=== PATIENT | female | born 1990 | race Hispanic/Latino ===

== ENCOUNTER 2018-04-15 11:21 | Emergency (ER) | payer OTHER, SELFPAY ==
[2018-04-15 11:26] VITALS: BP 137/90; PULSE 75; RESP 17; TEMP 36.7; O2SAT 100
--- NOTE | 2018-04-15 11:29 | DI.RAD.S_ITS ---
PROCEDURE: XR FOOT RT MIN 3V INDICATIONS: right foot pain TECHNIQUE: 3 views of the foot were acquired. COMPARISON: None. FINDINGS: Bones: Minimally displaced oblique fracture through the fifth proximal phalange. Soft tissues: No tibiotalar joint effusion. Achilles tendon appears normal. IMPRESSION: Fifth proximal phalangeal fracture. Dictated by: Michelle Damico MD, PhD on 04/15/2018 at 11:51 Approved by: Michelle Damico MD, PhD on 04/15/2018 at 11:52
--- NOTE | 2018-04-15 13:01 | ED.LOWEXIN ---
HPI - Extremity Injury (Lower) <TROY White - Last Filed: 04/15/18 21:47> General Chief Complaint: Extremity Injury, Lower Stated Complaint: FELL,INJURED TOES Time Seen by Provider: 04/15/18 13:00 Source: patient Mode of arrival: ambulatory Limitations: no limitations History of Present Illness HPI Narrative: Healthy 27-year-old female that is a nonsmoker here for complaint of pain into her right little toe over the past couple of days. She states that she accidentally jammed her right little toe on a baby gate 2 days ago. She reports some swelling and bruising to the area. She is ambulatory into the emergency room. She denies any other concerns or complaints. Increased pain with motion of the right toes MD complaint: foot injury Related Data Allergies Allergy/AdvReac Type Severity Reaction Status Date / Time codeine Allergy Hives Verified 04/15/18 11:26 Review of Systems <TROY White - Last Filed: 04/15/18 21:47> Constitutional Denies chills, Denies fever(s), Denies lethargy and Denies weakness Eyes Denies change in vision, Denies eye discharge, Denies irritation and Denies loss of vision ENT Ears, Nose, Mouth, and Throat: Denies change in voice, Denies neck pain and Denies sore throat Cardiovascular Denies chest pain, Denies irregular heart rhythm, Denies lightheadedness, Denies palpitations, Denies dyspnea, Denies dyspnea on exertion and Denies orthopnea Respiratory Denies cough, Denies dyspnea, Denies dyspnea on exertion and Denies wheezing Gastrointestinal Gastrointestinal: Denies abdominal pain, Denies change in bowel habits, Denies diarrhea, Denies nausea and Denies vomiting Genitourinary Denies hematuria, Denies flank pain, Denies urinary incontinence and Denies urinary urgency Musculoskeletal Denies neck pain Comments: Right little toe pain Integumentary/Breasts Denies pruritus, Denies erythema, Denies rash and Denies wounds Neurologic Denies confusion, Denies loss of vision and Denies weakness Psychiatric Denies anxiety, Denies confusion, Denies depression, Denies homicidal ideation and Denies suicidal ideation Endocrine Denies palpitations Hematologic/Lymphatic Denies easy bruising Allergic/Immunologic Denies wheezing Exam <TROY White - Last Filed: 04/15/18 21:47> Initial Vital Signs Initial Vital Signs: Vital Signs Temperature 98.0 F 04/15/18 11:26 Pulse Rate 75 04/15/18 11:26 Respiratory Rate 17 04/15/18 11:26 Blood Pressure 137/90 04/15/18 11:26 Pulse Oximetry 100 04/15/18 11:26 Const General: cooperative and well developed Nutritional Appearance: well nourished Orientation: alert, awake, oriented x3 and not confused HENNJ Mouth: oral mucosae normal and moist mucous membranes Eyes Conjunctivae: conjunctivae normal Sclera: sclerae normal Pupils: PERRL EOM: EOM intact bilaterally Resp Effort & Inspection: normal respiratory effort, able to speak in complete sentences, no respiratory distress and no use of accessory muscles Auscultation: clear to auscultation bilaterally, no rales, no rhonchi and no wheezes Cardio Rate: regular rate Rhythm: regular rhythm Heart Sounds: no click, no gallops, no murmurs and no rubs Pulses: normal peripheral pulses Skin General: no rashes or lesions noted, No jaundice and No petechiae Neuro General: alert, oriented x3, gait normal and no focal motor deficits Speech: speech normal Extrem Other: Slight swelling to the right little toe. Positive ecchymosis. No open lesions. Distal sensation is intact. Distal cap refill less than 2 sec. Positive range of motion <Mallorie Hall DO - Last Filed: 04/16/18 08:30> Initial Vital Signs Initial Vital Signs: Vital Signs Temperature 98.0 F 04/15/18 11:26 Pulse Rate 75 04/15/18 11:26 Respiratory Rate 17 04/15/18 11:26 Blood Pressure 137/90 04/15/18 11:26 Pulse Oximetry 100 04/15/18 11:26 Course <TROY White - Last Filed: 04/15/18 21:47> Orders Ordered: ED Orders 04/15/18 11:29 XR foot RT min 3V Stat Vital Signs - 8 hr 04/15/18 11:26 Temperature 98.0 F Pulse Rate 75 Respiratory Rate 17 Blood Pressure 137/90 Pulse Oximetry 100 <Mallorie Hall DO - Last Filed: 04/16/18 08:30> Orders Ordered: ED Orders 04/15/18 11:29 XR foot RT min 3V Stat Vital Signs - 8 hr 04/15/18 11:26 Temperature 98.0 F Pulse Rate 75 Respiratory Rate 17 Blood Pressure 137/90 Pulse Oximetry 100 MDM - Extremity Injury (Lower) <TROY White - Last Filed: 04/15/18 21:47> Imaging Data foot: Radiologist's impression: [address] [address] XRay Report Signed Patient: JAYSON BOLAND MR#: [id number] : 1990 Acct:[id number] Age/Sex: 27 / F Date of Service: 04/15/18 Loc: ED Accession Number: [id number] Procedure: XR foot RT min 3V Ordering Provider: Mallorie Hall D.O. PROCEDURE: XR FOOT RT MIN 3V INDICATIONS: right foot pain TECHNIQUE: 3 views of the foot were acquired. COMPARISON: None. FINDINGS: Bones: Minimally displaced oblique fracture through the fifth proximal phalange. Soft tissues: No tibiotalar joint effusion. Achilles tendon appears normal. IMPRESSION: Fifth proximal phalangeal fracture. Dictated by: Michelle Damico MD, PhD on 04/15/2018 at 11:51 Approved by: Michelle Dmaico MD, PhD on 04/15/2018 at 11:52 [facility] Narrative Medical decision making narrative: X-ray of the right foot shows minimally displaced oblique fracture to the 5th proximal phalange. Femi tape and postop shoe for comfort and support. Ice and elevation help with any swelling. [id number] acetaminophen or ibuprofen as needed for discomfort. Follow up with primary care provider next week for re-evaluation. For any worsening symptoms return to the emergency room. Discharge Plan Departure Patient Disposition: Home Clinical Impression: Fracture of right toe Discharge Date/Time: 04/15/18 13:42 Interventions: ED Discharge Assessment Last Done: 04/15/18 13:42 Instructions: DI for Toe Fracture Activity Restrictions/Additional Instructions: X-ray of the right foot shows fracture to the proximal little toe. Femi tape toe and postop shoe for comfort and support as instructed. Ice and elevation to help with any swelling. [id number] acetaminophen or ibuprofen as needed for discomfort. Follow up with primary care provider next week for re-evaluation. For any worsening symptoms return to the emergency room. Referrals: [facility] [Provider Group] <Mallorie Hall DO - Last Filed: 04/16/18 08:30> Cosign ED Attending Cosignature Attestation: I was immediately available in the department for consultation. This documentation has been reviewed and I agree with assessment and plan. Supervised by Mallorie Hall DO
--- NOTE | 2018-04-15 13:20 | ED_ITS ---
HPI - Extremity Injury (Lower) <TROY White - Last Filed: 04/15/18 21:47> General Chief Complaint: Extremity Injury, Lower Stated Complaint: FELL,INJURED TOES Time Seen by Provider: 04/15/18 13:00 Source: patient Mode of arrival: ambulatory Limitations: no limitations History of Present Illness HPI Narrative: Healthy 27-year-old female that is a nonsmoker here for complaint of pain into her right little toe over the past couple of days. She states that she accidentally jammed her right little toe on a baby gate 2 days ago. She reports some swelling and bruising to the area. She is ambulatory into the emergency room. She denies any other concerns or complaints. Increased pain with motion of the right toes MD complaint: foot injury Related Data Allergies Allergy/AdvReac Type Severity Reaction Status Date / Time codeine Allergy Hives Verified 04/15/18 11:26 Review of Systems <TROY White - Last Filed: 04/15/18 21:47> Constitutional Denies chills, Denies fever(s), Denies lethargy and Denies weakness Eyes Denies change in vision, Denies eye discharge, Denies irritation and Denies loss of vision ENT Ears, Nose, Mouth, and Throat: Denies change in voice, Denies neck pain and Denies sore throat Cardiovascular Denies chest pain, Denies irregular heart rhythm, Denies lightheadedness, Denies palpitations, Denies dyspnea, Denies dyspnea on exertion and Denies orthopnea Respiratory Denies cough, Denies dyspnea, Denies dyspnea on exertion and Denies wheezing Gastrointestinal Gastrointestinal: Denies abdominal pain, Denies change in bowel habits, Denies diarrhea, Denies nausea and Denies vomiting Genitourinary Denies hematuria, Denies flank pain, Denies urinary incontinence and Denies urinary urgency Musculoskeletal Denies neck pain Comments: Right little toe pain Integumentary/Breasts Denies pruritus, Denies erythema, Denies rash and Denies wounds Neurologic Denies confusion, Denies loss of vision and Denies weakness Psychiatric Denies anxiety, Denies confusion, Denies depression, Denies homicidal ideation and Denies suicidal ideation Endocrine Denies palpitations Hematologic/Lymphatic Denies easy bruising Allergic/Immunologic Denies wheezing Exam <TROY White - Last Filed: 04/15/18 21:47> Initial Vital Signs Initial Vital Signs: Vital Signs Temperature 98.0 F 04/15/18 11:26 Pulse Rate 75 04/15/18 11:26 Respiratory Rate 17 04/15/18 11:26 Blood Pressure 137/90 04/15/18 11:26 Pulse Oximetry 100 04/15/18 11:26 Const General: cooperative and well developed Nutritional Appearance: well nourished Orientation: alert, awake, oriented x3 and not confused HENNY Mouth: oral mucosae normal and moist mucous membranes Eyes Conjunctivae: conjunctivae normal Sclera: sclerae normal Pupils: PERRL EOM: EOM intact bilaterally Resp Effort & Inspection: normal respiratory effort, able to speak in complete sentences, no respiratory distress and no use of accessory muscles Auscultation: clear to auscultation bilaterally, no rales, no rhonchi and no wheezes Cardio Rate: regular rate Rhythm: regular rhythm Heart Sounds: no click, no gallops, no murmurs and no rubs Pulses: normal peripheral pulses Skin General: no rashes or lesions noted, No jaundice and No petechiae Neuro General: alert, oriented x3, gait normal and no focal motor deficits Speech: speech normal Extrem Other: Slight swelling to the right little toe. Positive ecchymosis. No open lesions. Distal sensation is intact. Distal cap refill less than 2 sec. Positive range of motion <Mallorie Hall DO - Last Filed: 04/16/18 08:30> Initial Vital Signs Initial Vital Signs: Vital Signs Temperature 98.0 F 04/15/18 11:26 Pulse Rate 75 04/15/18 11:26 Respiratory Rate 17 04/15/18 11:26 Blood Pressure 137/90 04/15/18 11:26 Pulse Oximetry 100 04/15/18 11:26 Course <TROY White - Last Filed: 04/15/18 21:47> Orders Ordered: ED Orders 04/15/18 11:29 XR foot RT min 3V Stat Vital Signs - 8 hr 04/15/18 11:26 Temperature 98.0 F Pulse Rate 75 Respiratory Rate 17 Blood Pressure 137/90 Pulse Oximetry 100 <Mallorie Hall DO - Last Filed: 04/16/18 08:30> Orders Ordered: ED Orders 04/15/18 11:29 XR foot RT min 3V Stat Vital Signs - 8 hr 04/15/18 11:26 Temperature 98.0 F Pulse Rate 75 Respiratory Rate 17 Blood Pressure 137/90 Pulse Oximetry 100 MDM - Extremity Injury (Lower) <TROY White - Last Filed: 04/15/18 21:47> Imaging Data foot: Radiologist's impression: [address] [address] XRay Report Signed Patient: JAYSON BOLAND MR#: [id number] : 1990 Acct:[id number] Age/Sex: 27 / F Date of Service: 04/15/18 Loc: ED Accession Number: [id number] Procedure: XR foot RT min 3V Ordering Provider: Mallorie Hall D.O. PROCEDURE: XR FOOT RT MIN 3V INDICATIONS: right foot pain TECHNIQUE: 3 views of the foot were acquired. COMPARISON: None. FINDINGS: Bones: Minimally displaced oblique fracture through the fifth proximal phalange. Soft tissues: No tibiotalar joint effusion. Achilles tendon appears normal. IMPRESSION: Fifth proximal phalangeal fracture. Dictated by: Michelle Damico MD, PhD on 04/15/2018 at 11:51 Approved by: Michelle Damico MD, PhD on 04/15/2018 at 11:52 [facility] Narrative Medical decision making narrative: X-ray of the right foot shows minimally displaced oblique fracture to the 5th proximal phalange. Femi tape and postop shoe for comfort and support. Ice and elevation help with any swelling. Over- the-counter acetaminophen or ibuprofen as needed for discomfort. Follow up with primary care provider next week for re-evaluation. For any worsening symptoms return to the emergency room. Discharge Plan Departure Patient Disposition: Home Clinical Impression: Fracture of right toe Discharge Date/Time: 04/15/18 13:42 Interventions: ED Discharge Assessment Last Done: 04/15/18 13:42 Instructions: DI for Toe Fracture Activity Restrictions/Additional Instructions: X-ray of the right foot shows fracture to the proximal little toe. Femi tape toe and postop shoe for comfort and support as instructed. Ice and elevation to help with any swelling. Pqdl-[id number]-[id number] acetaminophen or ibuprofen as needed for discomfort. Follow up with primary care provider next week for re- evaluation. For any worsening symptoms return to the emergency room. Referrals: [facility] [Provider Group] <Mallorie Hall DO - Last Filed: 04/16/18 08:30> Cosign ED Attending Cosignature Attestation: I was immediately available in the department for consultation. This documentation has been reviewed and I agree with assessment and plan. Supervised by Mallorie Hall DO
== END 2018-04-15 13:42 | disposition home or self-care (01) ==
PROVIDERS: Emergency Provider Nurse Practitioner Family
DX: S92.511A Displaced fracture of proximal phalanx of right lesser toe(s), initial encounter for closed fracture (principal); W22.8XXA Striking against or struck by other objects, initial encounter
CPT/HCPCS: 29550; 73630; 99282; 99283

== ENCOUNTER → 2019-05-10 15:33 | Outpatient (CLI) | payer OTHER, SELFPAY ==
[2019-05-11 15:06] LABS: Strep Grp B PCR NEG for Grp B Strep
== END ==
PROVIDERS: Visit Provider Family Medicine
DX: Z34.83 Encounter for supervision of other normal pregnancy, third trimester (principal); Z3A.36 36 weeks gestation of pregnancy
CPT/HCPCS: 87653

== ENCOUNTER 2019-06-11 12:04 | Inpatient (IN) | payer OTHER, SELFPAY ==
--- NOTE | 2019-06-11 13:24 | P.HPOB_ITS ---
OB HPI Date/Time Date of admission: 06/11/19 Date Patient Seen: 06/11/19 Time Patient Seen: 13:40 History of Present Condition Chief complaint: WATER BROKE : 2 Para: 1 Estimated Date of Delivery: 06/07/19 Estimated Gestational Age (weeks): 40 Narrative: Kari Méndez is a 28 year old 001 at 40 weeks 4 days, presenting reporting rupture of membranes at approximately 2:00 a.m.. The patient reports that they were briefly slightly bloody and then clear, with ongoing copious leakage. She denies ongoing vaginal bleeding, reports good movement, reports no contractions, and denies any other complaints obstetrical or otherwise. The patient has a history of preeclampsia with severe features requiring treatment with magnesium, but has not been on a baby aspirin in this . The patient reports that she has had an otherwise uncomplicated , with no lab abnormalities or ultrasound abnormalities. The patient reports that she is proven to 8 lb, and that her prior was uncomplicated beyond the preeclampsia. She denies any other significant medical or surgical history, family history, or social history. Indications Indication for induction OB: other (PROM) History of Present care: good care and initiated at week # (incomplete records, but record of 1st tri US) Dating criteria: based on 1st trimester US only Ultrasounds: normal 1st trimester US and normal mid trimester US Obstetrical complications: none Medical complications: none Preadmission Labs Blood type: O (+) positive -: Antibody screen: negative, Cystic fibrosis screen: negative, HBsAG: negative, HIV: negative and RPR/VDLR: negative -: Chlamydia screen: not detected and Gonorrhea screen: not detected -: Rubella: immune Integrated screen: Negative Urine: Negative Prior (ies) History: G1: 09/2016, , 7#15 oz, c/b PEC Evaluation Evaluation Baseline heart rate: 135 Variability: Moderate (11-25) monitor accelerations: Present monitor decelerations: Absent Contraction Frequency (minutes): 0 Uterine Contraction Intensity: Mild Category of Tracing: I Comments: SVE deferred due to prolonged rupture, patient comfort, rare ctx on admission. Patient 4cm/-2 in office 4 days ago. [facility] Medical History Closed fracture of phalanx of right fifth toe (Acute ~2019) Pre-eclampsia affecting , antepartum (Acute) Surgical History H/O breast augmentation (Acute ~2015) Family History Mother Hypertension Hypothyroidism Anxiety Grandfather History of open heart surgery Grandmother Hypertension Father Diabetes mellitus Hypertension Grandfather Alzheimer's dementia Grandmother COPD (chronic obstructive pulmonary disease) Brother Hypertension Diabetes mellitus Brother Hypertension Social History marital status: Smoking Status: Never smoker Meds Home Medications and Allergies Home Medications Medication Instructions Recorded Confirmed Type prenat.vits,rochelle,zgs-iioj-emfcd 1 tab PO DAILY 04/19/19 05/10/19 History hydrocodone 5 mg-acetaminophen 325 1 tab PO Q8H PRN #5 tab 05/24/19 05/24/19 Rx mg tablet Allergies Allergy/AdvReac Type Severity Reaction Status Date / Time codeine Allergy Hives Verified 05/10/19 14:31 Review of Systems Constitutional Constitutional: Reports system reviewed and no additional complaints, except as documented Cardiovascular Cardiovascular: Reports system reviewed; no additional complaints, except as documented Respiratory Respiratory: Reports system reviewed and no additional complaints, except as doc umented Gastrointestinal Gastrointestinal: Reports system reviewed and no additional complaints, except as documented Genitourinary Genitourinary: Reports as per HPI Musculoskeletal Musculoskeletal: Reports system reviewed; no additional complaints, except as documented Neurologic Neurologic: Reports system reviewed and no additional complaints, except as documented Exam Vital Signs (past 8 hours): 120/85, HR 91 Const General: cooperative, healthy appearing and comfortable Resp Effort & Inspection: normal respiratory effort Auscultation: clear to auscultation bilaterally Cardio Rate: regular rate Rhythm: regular rhythm GI Palpation: soft and No tender External Female Exam: external appearance normal (gross leakage clear fluid) Extrem General: normal to inspection Objective Labs Result Diagrams: 06/11/19 13:10 Assessment and Plan Assessment and Plan Assessment and Plan narrative: This patient is a @40+4 a/w PROM almost 12 hours ago. Patient is GBS negative and antibiotics will be deferred until 24 hrs ruptured, and pitocin will be initiated as soon as is feasible to expedite delivery. - CBC, T&S - cEFM, toco - pitocin per protocol - close monitoring VS due to hx PEC Time Spent with Patient Total time spent with greater than 50% in coordination of care (as documented) at patient's floor/unit and/or counseling patient:: 25 - 35 minutes
[2019-06-11 13:36] LABS: Add Manual Diff / Slide Review NO; Basophils Absolute Auto 0 /uL (0-100); Basophils Percent Auto 0.2 % (0-2); Eosinophils Absolute Auto 0 /uL (0-450); Eosinophils Percent Auto 0.3 % (2-4); Hematocrit 37.3 % (36-46); Hemoglobin 13.2 g/dL (12.0-16.0); Lymphocytes Absolute Auto 1400 /uL (1100-4500); Lymphocytes Percent Auto 12.3 % (25-40); Mean Corpuscular HGB Conc 35.5 % (30-36); Mean Corpuscular Hemoglobin 34.3 PG (26-34); Mean Corpuscular Volume 96.7 fL (80-100); Monocytes Absolute Auto 700 /uL (0-900); Monocytes Percent Auto 6.3 % (3-14); Neutrophils Absolute Auto 9500 /uL (1500-7000); Neutrophils Percent Auto 80.9 % (50-75); Platelet Count 157 X10^3/uL (150-400); Red Blood Cell Count 3.86 X10^6/uL (4.0-5.2); Red Cell Distribution Width 13.1 % (11.6-14.8); White Blood Cell Count 11.7 X10^3/uL (4.5-11.0)
[2019-06-11] MEDS: LACTATED RINGERS 1,000 ML 100 ML IV (15:00)
[2019-06-11] MEDS: OXYTOCIN PREMIX 30 UNIT/500 ML PLAST..BAG IV (15:14)
--- NOTE | 2019-06-11 17:06 | PM.OBPNLAB ---
Date/Time Date Patient Seen: 06/11/19 Time Patient Seen: 17:07 Pain Control Pain control: tolerating well Pelvic Exam Dilation (cm): 5 Effacement (%): 100 station: -2 Amniotic membrane status: Ruptured (Forebag ruptured, moderate clear fluid) Contractions Contractions on admission: regular Pitocin rate (mU/min): 6 Contraction frequency (min): 3 Contraction duration (min): 1 Contraction pattern: Regular Contraction intensity: Moderate Status status: Category l Heart Rate Baseline: 125 Monitor Accelerations: Present Monitor Decelerations: Absent Monitor Variability: Moderate Assessment and Plan Assessment: induction ongoing Plan: continuous present management Comments: Continue pitocin per protocol
[2019-06-11] MEDS: METHYLERGONOVINE 0.2 MG/ML VIAL IM (18:35)
--- NOTE | 2019-06-11 18:45 | PM.OBPRVD ---
 Events: Prolonged Rupture of Membrane Labor & Delivery Delivery date: 06/11/19 Delivery augmentation: pitocin Delivery monitor: external FHT and external uterine Route of delivery: L&D Laceration Description: Perineal - 1st Degree Estimated blood loss (mL): 350 Anesthesia type: None Narrative: This patient is a 28-year-old G2 now P2 day 0 status post an uncomplicated vaginal delivery. The patient presented 12 hours after rupture of membranes for clear fluid, GBS negative status. At that point, she was 4.5, 80%, -2. Pitocin was started, and a forebag ruptured 2 hours later at 5 cm, 80%, -1. The patient ambulated, and 1 hour after that exam, delivered a healthy female infant from the DIAMOND presentation, Apgars 8 and 9, weight 8#3. A first-degree spontaneously hemostatic perineal laceration was noted that did not require suturing. Patient had an atonic lower uterine segment and cervix, and 1 dose of Methergine was administered after normotension was assured. There were no other intrapartum complications, with a category 1 tracing throughout. There were no immediate complications. [place] Baby Ita: gender: Female Presentation: vertex position: Left Occiput Transverse (DIAMOND) Placenta delivery description: Spontaneous cord vessel description: 3 Vessels score (1 min): 8 score (5 min): 9 Narrative: Baby cried spontaneously immediately after delivery, was placed skin to skin with mom. Cord clamped and cut after cord pulsation had stopped. Plan for aftercare: Routine care, with close monitoring of blood pressures.
[2019-06-11] MEDS: IBUPROFEN 600 MG TABLET PO (21:23)
[2019-06-11] MEDS: ACETAMINOPHEN 325 MG TABLET 650 MG PO (21:24)
[2019-06-11 21:57] VITALS: BP 120/85
[2019-06-12 08:26] VITALS: TEMP 36.8
[2019-06-12] MEDS: IBUPROFEN 600 MG TABLET PO ×2 (08:26→18:00)
[2019-06-12] MEDS: PRENATAL VIT,CALC/IRON/FOLIC 1 TABLET 1 TAB PO (08:28)
--- NOTE | 2019-06-12 10:08 | P.PNOB_ITS ---
Subjective - OB Subjective Patient comments: no complaints and pain well controlled [place] baby status: doing well [place] feeding status: exclusively breast feeding Narrative: This patient is a 28-year-old para 2 day 1 after an u ncomplicated spontaneous vaginal delivery. The patient presented having broken her water 12 hours previously, was started on Pitocin, and progressed on her own. She progressed rapidly from 5 cm to fully dilated, and shortly thereafter delivered a healthy baby girl, weight 8 lb 3 oz, with no intrapartum complications. A small first-degree perineal laceration was spontaneously hemostatic and did not require sutures, and her recovery has since been uncomplicated. Today, she reports feeling well, with her most bothersome complaint being ongoing musculoskeletal back pain that started several weeks ago. The patient reports that this is significantly worsened by sleeping in hospital bed, the patient strongly desires discharge this evening. Patient has a history of preeclampsia in her prior delivery, and we discussed that if she is discharged this evening, she should return with any signs or symptoms of preeclampsia, which were reviewed. I also discussed with the patient that she should follow up on Thursday in clinic for a blood pressure check. The patient vocalized understanding. Patient otherwise is doing well, with no bowel or bladder complaints, mild lochia, minimal cramping, and no other symptoms this morning. Date Patient Seen: 06/12/19 Time Patient Seen: 10:11 Exam Vital Signs (past 8 hours): - Blood pressure this a.m. 129/73, no tachycardia 06/12/19 08:26 Temperature 98.2 F Const General: cooperative, healthy appearing and comfortable Resp Effort & Inspection: normal respiratory effort Auscultation: clear to auscultation bilaterally Cardio Rate: regular rate Rhythm: regular rhythm GI Palpation: soft and No tender Other: Fundus firm, well below U Skin General: no rashes or lesions noted Objective Labs Result Diagrams: 06/11/19 13:10 Labs: Laboratory Results - last 24 hr 06/11/19 06/11/19 13:10 13:10 WBC 11.7 H RBC 3.86 L Hgb 13.2 Hct 37.3 MCV 96.7 MCH 34.3 H MCHC 35.5 RDW 13.1 Plt Count 157 Neut % (Auto) 80.9 H Lymph % (Auto) 12.3 L [facility] % (Auto) 6.3 Eos % (Auto) 0.3 L Baso % (Auto) 0.2 Neut # (Auto) 9500 H Lymph # (Auto) 1400 [facility] # (Auto) 700 Eos # (Auto) 0 Baso # (Auto) 0 Blood Type O Positive Antibody Screen Negative Assessment & Plan Plan day: 1 plan OB: routine care Comments: This patient is recovering well, meeting goals with no complaints except her ongoing back pain. The patient strongly desires discharge, and we discussed precautions for preeclampsia and a blood pressure check in clinic. The patient vocalized understanding, and vocalized understanding of the risk of preeclampsia that might otherwise be detected overnight and tomorrow morning. All questions were answered, and precautions were discussed at length. Patient was encouraged to call or come in with any concerns. Time Spent With Patient Time: Total time spent is greater than 50% in coordination of care (as documented) at patient's floor/unit and/or counseling patient: Time with patient: 15-24 minutes
--- NOTE | 2019-06-12 10:18 | PM.OBDS.1 ---
Discharge Providers Provider Date of admission: 06/11/19 12:04 Discharge Date: 06/12/19 Consults: 06/12/19 18:44 Consult to Branch Billing Payroll Clerk Routine Comment: Discharge provider: Tamiko Leal MD Summary Hospital Course Date Patient Seen: 06/12/19 Time Patient Seen: 10:22 Peripartum Data Delivery Method: Natural Vaginal Laceration description: Perineal - 1st Degree complications: none 1: Gender: Female Disposition of : home Discharge Diagnosis (1) Vaginal delivery: Status: Acute Status at Discharge Cognitive/behavioral status at discharge: oriented Functional status at discharge: independent ambulation Overall status at discharge: patient is progressing back to baseline Time Spent with Patient Time attestation: Total time spent providing and/or coordinating discharge services: Time spent: Less than 30 minutes Specific discharge activities: Nothing in the vagina for 6 weeks. Avoid heavy lifting for 6 weeks. If you develop signs or symptoms of preeclampsia such as headaches, visual changes, chest pain, trouble breathing, right upper quadrant pain, or any other complaints, call or come to the ED. Similarly, few developed increased vaginal bleeding, fevers, chills, vaginal discharge, or any other concerning symptoms, call or come to the ED. Objective Labs Result Diagrams: 06/11/19 13:10 Labs: Laboratory Results - last 24 hr 06/11/19 06/11/19 13:10 13:10 WBC 11.7 H RBC 3.86 L Hgb 13.2 Hct 37.3 MCV 96.7 MCH 34.3 H MCHC 35.5 RDW 13.1 Plt Count 157 Neut % (Auto) 80.9 H Lymph % (Auto) 12.3 L [place] % (Auto) 6.3 Eos % (Auto) 0.3 L Baso % (Auto) 0.2 Neut # (Auto) 9500 H Lymph # (Auto) 1400 [place] # (Auto) 700 Eos # (Auto) 0 Baso # (Auto) 0 Blood Type O Positive Antibody Screen Negative Exam Vital Signs (past 8 hours): - See day of discharge note 06/12/19 08:26 Temperature 98.2 F Discharge Plan Discharge Plan Patient Disposition: Home Discharge orders & Medications Prescriptions: New ibuprofen 600 mg tablet 600 mg PO Q8H PRN (Reason: pain) Qty: 14 RF: 0 Continued hydrocodone-acetaminophen 5-325 mg tablet 1 tab PO Q8H PRN (Reason: pain) Qty: 5 RF: 0 prenat.vits,rochelle,qsk-piyg-anadv Tablet 1 tab PO DAILY RF: 0 Follow up/Referrals: Mariela Moses MD [Physician] - 3-5 Days (BP check given hx preeclampsia) Diet/Activity/Treatments Diet: Regular Activity: Nothing in the vagina for 6 weeks. Avoid heavy lifting for 6 weeks. If you develop increasing fevers, chills, nausea, vomiting, vaginal bleeding, or any other complaints, call or come to the ED. Skin/Wound/Dressing Care Report to your healthcare provider any signs of infection, such as:: chills, fever, night sweats, increased pain, unusual drainage and unusual redness Visit Report/Discharge Packet Instructions: DI for Labor and Delivery, Vaginal
[2019-06-12 12:35] VITALS: BP 120/85; TEMP 36.8
[2019-06-12 19:42] VITALS: BP 125/75; PULSE 78; RESP 17; TEMP 36.8
== END 2019-06-12 20:05 | disposition home or self-care (01) | DRG 807 ==
PROVIDERS: Obstetrics & Gynecology; Admitting Provider Family Medicine; Referring Provider Family Medicine; Visit Provider Family Medicine
DX: O42.02 Full-term premature rupture of membranes, onset of labor within 24 hours of rupture (principal); Z37.0 Single live birth; Z3A.40 40 weeks gestation of pregnancy; M54.9 Dorsalgia, unspecified
CPT/HCPCS: 59050; 59410; 85025; 86850; 86900; 86901; G0379; J2210; J2590

== ENCOUNTER → 2019-06-13 16:54 | Outpatient (CLI) | payer OTHER, SELFPAY ==
--- NOTE | 2019-06-13 16:56 | DI.RAD.S_ITS ---
PROCEDURE: XR LUMBAR SPINE MIN 4V INDICATIONS: persistent severe low back pain with radiculopathy TECHNIQUE: 5 views of the lumbar spine were acquired. COMPARISON: None. FINDINGS: Bones: 5 nonrib-bearing vertebrae are present. There is mildly abnormal bony alignment, with slight grade 1 anterolisthesis of L5 on S1, associated with mild disc height reduction and mild facet joint space thinning at the L5-S1 level.. No vertebral body compression fractures. No suspicious bony lesions. Soft tissues: Overlying bowel gas pattern is normal. No suspicious soft tissue calcifications. Oblique images: No pars defects. IMPRESSION: Minimal degenerative disc disease and facet osteoarthritis at L5-S1, with slight anterolisthesis, but no compression fracture or evidence of acute trauma is found. A pars interarticularis defect is not identified. Dictated by: Shravan Espinoza M.D. on 06/14/2019 at 9:42 Approved by: Shravan Espinoza M.D. on 06/14/2019 at 9:44
== END ==
PROVIDERS: Referring Provider Family Medicine; Visit Provider Family Medicine
DX: M54.5 Low back pain (principal); M54.16 Radiculopathy, lumbar region
CPT/HCPCS: 72110

== ENCOUNTER → 2019-06-24 14:05 | Outpatient (CLI) | payer OTHER, SELFPAY ==
--- NOTE | 2019-06-24 14:11 | DI.MRI.S_ITS ---
PROCEDURE: MR LUMBAR SPINE WO CON INDICATIONS: low back pain with worsening radiculopathy TECHNIQUE: Noncontrast sagittal T1 spin echo and T2 fast echo, sagittal STIR, axial T1 and T2 fast spin echo through the lumbar spine. In cases with scoliosis, additional coronal T2 fast spin echo may be performed. COMPARISON: [facility], CR, XR LUMBAR SPINE MIN 4V, 06/13/2019, 16:54. FINDINGS: Image quality: Excellent. Alignment and Curvature: There is normal bony alignment. Bone Marrow: Marrow is of normal overall signal. No acute vertebral body compression fractures. Spinal Cord: Conus medullaris terminates at the L1 level. Visualized cord demonstrates normal signal and size. Paraspinous Soft Tissues: No paravertebral masses. T12-L1: Normal appearance. L1-L2: Minimal disc bulge. No canal stenosis or foraminal stenosis. L2-L3: Minimal disc bulge. Mild facet and ligament hypertrophy. No canal stenosis or foraminal stenosis. L3-L4: Mild broad-based central posterior disc protrusion indenting on the thecal sac. Facet and ligament hypertrophy. Mild to moderate canal stenosis. No foraminal stenosis. L4-L5: Central posterior disc protrusion with large associated extruded disc fragment which measures approximately 1.7 x 1.1 x 0.9 cm, with marked compromise of the thecal sac. Mild bilateral foraminal narrowing. L5-S1: The mild disc bulge. Mild facet hypertrophy. No canal stenosis. No foraminal stenosis. IMPRESSION: 1. At L4-L5, there is a central posterior disc protrusion associated with a large extruded disc fragment measuring 1.7 x 1.1 x 0.9 cm, with marked compromise on the thecal sac. 2. At L3-L4, there is mild broad-based central posterior disc protrusion resulting in mild to moderate canal stenosis. Dictated by: Alejandro Avelar M.D. on 06/24/2019 at 15:06 Approved by: Alejandro Avelar M.D. on 06/24/2019 at 15:11
== END ==
PROVIDERS: Referring Provider Family Medicine; Visit Provider Family Medicine
DX: M54.5 Low back pain (principal); M51.16 Intervertebral disc disorders with radiculopathy, lumbar region; M48.061 Spinal stenosis, lumbar region without neurogenic claudication
CPT/HCPCS: 72148